=== PATIENT | male | born 1975 | race Caucasian/White ===

== ENCOUNTER 2022-11-22 18:17 | Inpatient (IN) | payer MEDICAID ==
[~2022-11-22] VITALS: Ht 172.7 cm; Wt 86.2 kg
[2022-11-22] MEDS ORDERED: OXYMETAZOLINE HCL NASAL SPRAY 15ML BOTHNSTRLS STA (19:19)
[2022-11-22 20:18] LABS: CHLORIDE 101 mEq/L (98-107)
[2022-11-22 20:19] LABS: BASOPHILS % 0.4 % (0.0-2.0); EOSINOPHILS % 0.6 % (0.0-5.0); HEMATOCRIT. 39.9 % (42.0-52.0); HEMOGLOBIN. 13.8 g/dL (14.0-18.0); LYMPHOCYTES % 17.3 % (20.0-50.0); MEAN CORPUSCULAR HEMOGLOBIN 31.7 pg (28.0-32.0); MEAN CORPUSCULAR VOLUME 91.5 fL (80.0-94.0); NEUTROPHILS % 74.7 % (40.0-76.0); PLATELET 282 x1000/uL (130-400); RED BLOOD CELL COUNT 4.37 mill/uL (4.7-6.1); RED CELL DISTRIBUTION WIDTH 13.3 % (11.6-14.6)
[2022-11-22 20:20] LABS: PROTHROMBIN TIME 10.9 sec (9.6-11.0)
[2022-11-22 20:25] LABS: ETHANOL BLOOD < 10 mg/dL
[2022-11-22] MEDS ORDERED: SODIUM CHLORIDE 0.9% 1,000 ML IV ONE (21:15)
[2022-11-22] MEDS ORDERED: KCL 10MEQ/50ML PREMIX 50 ML IV ONE ×2 (21:15)
[2022-11-22] MEDS ORDERED: POTASSIUM CHLORIDE 20MEQ TABLET SR PO ONE (21:15)
[2022-11-22] MEDS ORDERED: LABETALOL 5MG/ML SYR 20 MG/4 ML SYRINGE IV NR (21:30)
[2022-11-22] MEDS: MAGNESIUM OXIDE 400MG TABLET PO SCH ×2 (21:36→21:44)
[2022-11-22] MEDS ORDERED: LABETALOL HCL VIAL 20 MG/4 ML VIAL IV ONE (21:45)
[2022-11-22] MEDS ORDERED: CLONIDINE 0.1MG TABLET PO PRN (23:00)
[2022-11-22] MEDS ORDERED: BENAZEPRIL 10MG TABLET PO SCH (23:00)
[2022-11-22] MEDS ORDERED: ACETAMINOPHEN 325MG TABLET PO PRN ×2 (23:00)
[2022-11-22] MEDS ORDERED: ONDANSETRON HCL 4MG/2ML INJ IV PRN (23:00)
[2022-11-22] MEDS ORDERED: POTASSIUM CHLORIDE 20MEQ TABLET SR PO NR (23:00)
[2022-11-22] MEDS ORDERED: ZOLPIDEM TARTRATE 5MG TABLET PO PRN (23:00)
[2022-11-22] MEDS ORDERED: MAGNESIUM/ALUMINUM HYDROXIDE/SIMETHICONE 30ML UDC PO PRN (23:00)
[2022-11-22] MEDS ORDERED: DIPHENHYDRAMINE 50MG/ML VIAL IV PRN (23:00)
[2022-11-23] MEDS: BENAZEPRIL 10MG TABLET PO SCH ×2 (00:10→00:22)
[2022-11-23] MEDS: DEXT 5%/0.45% NACL KCL 40MEQ/L 1,000 ML IV SCH ×3 (00:10→11:03)
[2022-11-23] MEDS: HYDRALAZINE 20MG/ML VIAL IV PRN ×3 (00:12→11:49)
[2022-11-23] MEDS: AMLODIPINE 10MG TABLET PO SCH ×2 (00:15→09:47)
[2022-11-23 04:45] LABS: BASOPHILS % 0.5 % (0.0-2.0); EOSINOPHILS % 0.4 % (0.0-5.0); HEMATOCRIT. 33.4 % (42.0-52.0); HEMOGLOBIN. 11.8 g/dL (14.0-18.0); LYMPHOCYTES % 18.3 % (20.0-50.0); MEAN CORPUSCULAR HEMOGLOBIN 32.4 pg (28.0-32.0); MEAN CORPUSCULAR VOLUME 91.7 fL (80.0-94.0); MEAN PLATELET VOLUME 7.7 fl (7.4-10.4); MONOCYTES % 5.1 % (2.0-8.0); NEUTROPHILS % 75.7 % (40.0-76.0); PLATELET 281 x1000/uL (130-400); RED BLOOD CELL COUNT 3.64 mill/uL (4.7-6.1); RED CELL DISTRIBUTION WIDTH 13.6 % (11.6-14.6)
[2022-11-23 04:53] LABS: CHLORIDE 106 mEq/L (98-107)
[2022-11-23 05:02] LABS: PHOSPHORUS 2.5 mg/dL (2.5-4.9)
[2022-11-23] MEDS: PANTOPRAZOLE 40MG DR TABLET PO SCH ×2 (06:19→06:37)
[2022-11-23] MEDS ORDERED: AMLODIPINE 10MG TABLET PO SCH (09:00)
[2022-11-23] MEDS ORDERED: POTASSIUM CHLORIDE 20MEQ TABLET SR PO NR (10:15)
[2022-11-23 11:59] VITALS: BP 172/109
[2022-11-23 12:13] VITALS: BP 172/109
[2022-11-23 12:18] VITALS: BP 153/99
[2022-11-23] MEDS ORDERED: INFLUENZA VACCINE 05/PF 0.5 ML SYRINGE IM ONE (13:00)
[2022-11-23] MEDS ORDERED: PNEUMOCOCCAL 23-VAL P-SAC VAC 0.5 ML IM ONE (13:00)
[2022-11-23 14:38] VITALS: BP 153/99
== END 2022-11-23 17:05 | disposition home or self-care (01) | DRG 469 ==
LOC: ER 18:53 → MICUSO 22:23 → EDBEDREQ 22:24 → 8WST 11-23 11:33
PROVIDERS: ADMIT Internal Medicine; ATTEND Internal Medicine
DX: N17.9 Acute kidney failure, unspecified (principal); E87.1 Hypo-osmolality and hyponatremia; E87.6 Hypokalemia; E86.0 Dehydration; I10 Essential (primary) hypertension; R04.0 Epistaxis; Z20.822 Contact with and (suspected) exposure to COVID-19; Z79.899 Other long term (current) drug therapy; Z87.891 Personal history of nicotine dependence
CPT/HCPCS: 36415; 80048; 80053; 80320; 83735; 84100; 85025; 86850; 86900; 87426; 93005; 99285; J0360; J1200; J3480; J3490; J7030; G0480